=== PATIENT | male | born 1985 | race Hispanic/Latino ===

== ENCOUNTER 2017-05-04 12:38 | Emergency (ER) | payer OTHER ==
[2017-05-04] MEDS ORDERED: VITAMIN B-1 100 MG, FOLVITE 1 MG, INFUVITE 10 ML in NACL 0.9% 1000 ML 1,000 ML IV ONE (13:45)
[2017-05-04] MEDS ORDERED: KEPPRA 1,000 MG/NS 0.75% 100ML 1,000 MG/100 ML BAG IV ONE (13:46)
[2017-05-04 13:52] LABS: Basophils % (Auto) 0.4 % (0.0-1.8); Eosinophils % (Auto) 0.3 % (0.0-4.3); Hemoglobin 15.9 gm/dl (11.8-15.2); Mean Corpuscular HGB Conc 34 % (32-34); Mean Corpuscular Hemoglobin 33 pg (28-32); Mean Corpuscular Volume 96 fl (84-94); Platelet Count 194 K/mm3 (140-440); Red Cell Distribution Width 14.7 % (13.2-15.2); White Blood Count 7.5 K/mm3 (4.5-11.0)
[2017-05-04 13:54] LABS: Urine Drugs of Abuse Note Disclamer
--- NOTE | 2017-05-04 14:00 | Emergency Department Report ---
HPI - General Chief Complaint: Seizure Time Seen by Provider: 05/04/17 13:13 - HPI HPI: This is a 31-year-old male presents to the emergency department by EMS with complaint of a few seizures this morning. The patient was able to become lucid enough to call 911. He does have a seizure history for which she takes Keppra and says that he has been compliant. He also said that he had something to drink last night. However, spoke to the patient's mother who says that they do not have any alcohol house and she is unsure where he would've gotten it. He went to visit one of their family friends today and [place], however they were at s[employer]ism at the time. Usually when he has a seizure problem he ends up at [facility]. His last set of seizures was sometime around October. No recent travel or sick contacts at home. He has a past medical history of diabetes and has some chronic back pain history for which he takes Percocet. He sees a pain physician and is about to set up an appointment with a neurologist. ED Past Medical Hx - Past Medical History Previous Medical History?: Yes Hx Diabetes: Yes Hx Seizures: Yes Additional medical history: Liver Failure - Surgical History Past Surgical History?: Yes Additional Surgical History: Back - Social History Smoking Status: Never Smoker Substance Use Type: Alcohol, Marijuana - Medications Home Medications: Home Medications Medication Instructions Recorded Confirmed Last Taken Type Atenolol [Tenormin] 100 mg PO DAILY 05/04/17 05/04/17 Unknown History Gabapentin [Neurontin] 800 mg PO TID 05/04/17 05/04/17 Unknown History Oxycodone HCl/Acetaminophen 10 mg PO TID 05/04/17 05/04/17 Unknown History [Percocet 10/325 mg] Rosuvastatin (Nf) [Crestor] 20 mg PO DAILY 05/04/17 05/04/17 Unknown History amLODIPine [Norvasc] 5 mg PO DAILY 05/04/17 05/04/17 Unknown History carBAMazepine [Tegretol] 200 mg PO BID #30 tablet 05/04/17 Unknown Rx levETIRAcetam [Keppra] 1,000 mg PO DAILY 05/04/17 05/04/17 Unknown History ED Review of Systems ROS: Stated complaint: UNCONSCIOUS Other details as noted in HPI Comment: All other systems reviewed and negative Constitutional: denies: chills, fever Eyes: denies: eye pain, eye discharge, vision change ENT: denies: ear pain, throat pain Respiratory: denies: cough, shortness of breath, wheezing Cardiovascular: denies: chest pain, palpitations Gastrointestinal: denies: abdominal pain, nausea, diarrhea Genitourinary: denies: urgency, dysuria Musculoskeletal: denies: back pain, joint swelling, arthralgia Skin: denies: rash, lesions Neurological: confusion, other (seizures) Physical Exam - Physical Exam Vital Signs: Vital Signs 05/04/17 05/04/17 12:43 12:52 Temperature 100 F H Pulse Rate 106 H Respiratory 16 16 Rate Blood Pressure 144/97 O2 Sat by Pulse 99 98 Oximetry Physical Exam: GENERAL: The patient is well-developed well-nourished. HENT: Normocephalic. Atraumatic. Patient has moist mucous membranes. EYES: Extraocular motions are intact. Pupils equal reactive to light bilaterally. NECK: Supple. Trachea is midline. CHEST/LUNGS: Clear to auscultation. There is no respiratory distress noted. HEART/CARDIOVASCULAR: Regular. There is mild to moderate tachycardia. There is no gallop rub or murmur. ABDOMEN: Abdomen is soft, nontender. Patient has normal bowel sounds. There is no abdominal distention. SKIN: Skin is warm and dry. NEURO: The patient is awake, alert, and oriented patient does respond slightly slowly. The patient is cooperative. The patient has no focal neurologic deficits. The patient has normal speech and gait. Cranial nerves II through XII grossly intact. MUSCULOSKELETAL: There is no tenderness or deformity. There is no limitation range of motion. There is no evidence of acute injury. ED Course Vital Signs 05/04/17 05/04/17 12:43 12:52 Temperature 100 F H Pulse Rate 106 H Respiratory 16 16 Rate Blood Pressure 144/97 O2 Sat by Pulse 99 98 Oximetry ED Medical Decision Making - Lab Data Result diagrams: 05/04/17 13:34 05/04/17 13:34 - EKG Data -: EKG Interpreted by In EKG shows normal: sinus rhythm, axis, intervals (prolonged QTC), QRS complexes ( Q waves to the septal/anterior leads), ST-T waves Rate: tachycardia (106 bpm) - EKG Data When compared to previous EKG there are: previous EKG unavailable Interpretation: other (sinus tachycardia, Q waves to the septal and anterior leads, prolonged QTc interval) - Medical Decision Making 31-year-old male presents to the emergency department after having a few seizures this morning. He is allegedly compliant with his seizure medication. At first the patient was awake but answered questions slightly slowly, however appropriately. During his ED course he went back to his baseline mental status. No focal, motor or sensory deficits and his cranial nerves are intact. Labs have been unremarkable. The patient continued to have tachycardia throughout most of his ED course. He has a chronic pain issue so I attempted to give him some pain relief of treating his tachycardia. That did not work so the patient was given some IV fluid resuscitation and that did not seem to help. Eventually found out that the patient is on atenolol for blood pressure and rate control and had not taken yet this morning. I presented the patient to the hospitalist for admission but it appears as if he was able to get his heart rate under control, did a CT angiography of the chest and then discharged him home. Critical Care Time: No Critical care attestation.: If time is entered above; I have spent that time in minutes in the direct care of this critically ill patient, excluding procedure time. ED Disposition Clinical Impression: Seizures, Tachycardia Chronic back pain Qualifiers: Back pain location: low back pain Back pain laterality: unspecified Sciatica presence: without sciatica Qualified Code(s): M54.5 - Low back pain; G89.29 - Other chronic pain; G89.29 - Other chronic pain Disposition: DC-01 TO HOME OR SELFCARE Is pt being admited?: No Condition: Stable Instructions: Biliary Colic (ED), Recurrent Seizures Adult (ED) Additional Instructions: no driving until cleared by PCP Prescriptions: carBAMazepine [Tegretol] 200 mg PO BID #30 tablet Referrals: PRIMARY CARE, [Primary Care Provider] - 3-5 Days (your own Neurology Dr in 7days.)
[2017-05-04 14:07] LABS: Alanine Aminotransferase 44 units/L (7-56); Albumin 4.9 g/dL (3.9-5); Albumin/Globulin Ratio 1.5 %; Alkaline Phosphatase 162 units/L (35-129); Anion Gap 22 mmol/L; BUN/Creatinine Ratio 20; Blood Urea Nitrogen 10 mg/dL (9-20); Calcium 9.7 mg/dL (8.4-10.2); Carbon Dioxide 24 mmol/L (22-30); Chloride 104.3 mmol/L (98-107); Glucose 120 mg/dL (75-100); Potassium 3.8 mmol/L (3.6-5.0); Sodium 146 mmol/L (137-145); Total Protein 8.1 g/dL (6.3-8.2)
[2017-05-04 14:12] LABS: Bacteria,Urine 1+ /HPF (Negative); Bilirubin,Urine NEG (Negative); Blood,Urine NEG (Negative); Ketones,Urine NEG (Negative); Leukocyte Esterase,Urine NEG (Negative); Nitrite,Urine NEG (Negative); Protein,Urine <15 mg/dL mg/dL (Negative); RBC,Urine < 1.0 /HPF (0.0-6.0); Urobilinogen,Urine < 2.0 mg/dL (<2.0)
[2017-05-04 14:13] LABS: WBC,Urine < 1.0 /HPF (0.0-6.0)
[2017-05-04] MEDS ORDERED: TORADOL IV ONE (15:45)
[2017-05-04] MEDS ORDERED: DILAUDID IV ONE (16:23)
[2017-05-04] MEDS ORDERED: NACL 0.9% 1000 ML 1,000 ML IV ONE (17:22)
[2017-05-04] MEDS ORDERED: NEURONTIN PO ONE (19:29)
[2017-05-04] MEDS ORDERED: TENORMIN PO ONE (19:30)
[2017-05-04] MEDS ORDERED: PERCOCET 5/325 PO ONE (20:00)
[2017-05-04] MEDS ORDERED: NACL ONE (21:07)
--- NOTE | 2017-05-04 21:46 | Cat Scan Report ---
FINAL REPORT PROCEDURE: CT ANGIO CHEST TECHNIQUE: Computerized tomographic angiography of the chest was performed after the IV injection of iodinated nonionic contrast including image processing. The image data was postprocessed using 2-dimensional multiplanar reformatted (MPR) and 3-dimensional (MIP and/or volume rendered) techniques. HISTORY: Dyspnea COMPARISON: No prior studies are available for comparison. FINDINGS: Heart and pericardium: Normal. Thoracic aorta: Normal. Pulmonary vasculature: Suboptimal enhancement. No filling defect to suggest embolism. Lymph nodes: No enlarged thoracic lymph nodes. Lungs: Normal. Pleural space: No effusion, thickening, or pneumothorax. Musculoskeletal structures: No significant abnormality. Upper abdominal structures: Hepatomegaly. Small gallstones. IMPRESSION: No embolism seen. Suboptimal enhancement of the pulmonary arteries Hepatomegaly. Gallstones.
[2017-05-04 21:47] VITALS: BP 107/67
--- NOTE | 2017-05-05 07:46 | History and Physical Report ---
History of Present Illness Chief complaint: I had a seizure again History of present illness: 31 YO Male with Seizure Disorder, DM, presents to ED for evaluation. Pt states that he experienced a few seizures this morning. The patient was able to become lucid enough to call EMS. Upon arrival, patient had recovered from his seizure and was back to his usual state of health. Pt seen and evaluated in ED and found to have breakthrough seizures, Pt states tht he is compliant with Keppra as outpatient. Pt given loading dose of keppra and initiated therapy with Tegretol. Pt found to be tachycardic and underwent CTA chest which was negative for PE/Aortic Dissection. Pt medically optimized and back to usual state of health. Pt discharged home and instructed to f/u pcp 1wk, and Neurology 1wk. Past History Past Medical History: diabetes, hypertension, seizures Past Surgical History: Other (back surgery) Social history: single, lives with family Family history: no significant family history (reviewed) Medications and Allergies Allergies Allergy/AdvReac Type Severity Reaction Status Date / Time No Known Allergies Allergy Unverified 05/04/17 13:44 Home Medications Medication Instructions Recorded Confirmed Last Taken Type Atenolol [Tenormin] 100 mg PO DAILY 05/04/17 05/04/17 Unknown History Gabapentin [Neurontin] 800 mg PO TID 05/04/17 05/04/17 Unknown History Oxycodone HCl/Acetaminophen 10 mg PO TID 05/04/17 05/04/17 Unknown History [Percocet 10/325 mg] Rosuvastatin (Nf) [Crestor] 20 mg PO DAILY 05/04/17 05/04/17 Unknown History amLODIPine [Norvasc] 5 mg PO DAILY 05/04/17 05/04/17 Unknown History carBAMazepine [Tegretol] 200 mg PO BID #30 tablet 05/04/17 Unknown Rx levETIRAcetam [Keppra] 1,000 mg PO DAILY 05/04/17 05/04/17 Unknown History Review of Systems Constitutional: no weight loss, no weight gain, no fever, no chills, no sweats Ears, nose, mouth and throat: no ear pain, no ear discharge, no tinnitis, no decreased hearing, no nose pain, no nasal congestion, no nasal discharge Cardiovascular: no chest pain, no orthopnea, no palpitations, no rapid/ irregular heart beat, no edema, no syncope, no lightheadedness, no shortness of breath Respiratory: no cough, no cough with sputum, no excessive sputum, no hemoptysis , no shortness of breath Gastrointestinal: no abdominal pain, no nausea, no vomiting, no diarrhea, no constipation Genitourinary Male: no dysuria, no hematuria, no flank pain, no discharge, no urinary frequency, no urinary hesitancy Rectal: no pain, no incontinence, no bleeding Musculoskeletal: no neck stiffness, no neck pain, no shooting arm pain, no arm numbness/tingling, no low back pain, no shooting leg pain, no leg numbness/ tingling Integumentary: no rash, no pruritis, no redness, no sores, no wounds, no jaundice, no boils Neurological: seizures, no head injury, no transient paralysis, no paralysis, no weakness, no parathesias, no numbness, no tingling, no syncope, no tremors, no ataxia Psychiatric: no anxiety, no memory loss, no change in sleep habits, no sleep disturbances, no insomnia, no hypersomnia, no change in appetite, no change in libido Endocrine: no cold intolerance, no heat intolerance, no polyphagia, no excessive thirst, no polydipsia, no polyuria, no nocturia Hematologic/Lymphatic: no easy bruising, no easy bleeding Allergic/Immunologic: no urticaria, no allergic rhinitis, no wheezing Exam - Constitutional Vitals: Temp Pulse Resp BP Pulse Ox 98.3 F 82 16 107/67 96 05/04/17 19:45 05/04/17 21:45 05/04/17 21:45 05/04/17 21:45 05/04/17 21:45 General appearance: Present: no acute distress, well-nourished - EENT Eyes: Present: PERRL ENT: hearing intact, clear oral mucosa - Neck Neck: Present: supple, normal ROM - Respiratory Respiratory effort: normal Respiratory: bilateral: CTA - Cardiovascular Heart Sounds: Present: S1 & S2. Absent: rub, click - Extremities Extremities: pulses symmetrical, No edema Peripheral Pulses: within normal limits - Abdominal General gastrointestinal: Present: soft, non-tender, non-distended, normal bowel sounds Male genitourinary: Present: normal - Integumentary Integumentary: Present: clear, warm, dry - Musculoskeletal Musculoskeletal: gait normal, strength equal bilaterally - Psychiatric Psychiatric: appropriate mood/affect, intact judgment & insight - Neurologic Neurologic: CNII-XII intact, moves all extremities Results - Labs CBC & Chem 7: 05/04/17 13:34 05/04/17 13:34 Labs: Abnormal lab results 05/04/17 05/04/17 05/04/17 Range/Units 13:34 13:34 13:34 Hgb 15.9 H (11.8-15.2) gm/dl Hct 47.0 H (35.5-45.6) % MCV 96 H (84-94) fl MCH 33 H (28-32) pg Lymph % (Auto) 45.0 H (13.4-35.0) % Sodium 146 H (137-145) mmol/L Creatinine 0.5 L (0.8-1.5) mg/dL Glucose 120 H (75-100) mg/dL AST 64 H (5-40) units/L Alkaline Phosphatase 162 H (35-129) units/L Total Creatine Kinase 43 L (55-170) units/L Assessment and Plan - Patient Problems (1) Seizures Status: Acute Plan to address problem: No recurrent seizures, Pt treated with Keppra, Tegretol. Pt counseled regarding ETOH cessation. Pt instructed to f/u PCP and Neurology within 1 wk. (2) Diabetes Status: Acute Qualifiers: Diabetes mellitus type: D Diabetes mellitus complication status: D Diabetes mellitus complication detail: D Diabetic retinopathy severity: D Proliferative retinopathy type: P Diabetes mellitus macular edema: D Diabetes mellitus termite inspector insulin use: D Laterality: L Chronic kidney disease stage: C Plan to address problem: ADA diet, insulin, accu check
== END 2017-05-04 22:44 | disposition home or self-care (01) ==
LOC: EDBD → ED 12:38
DX: R56.9 Unspecified convulsions (principal); R00.0 Tachycardia, unspecified; M54.89 Other dorsalgia; G89.29 Other chronic pain; E11.9 Type 2 diabetes mellitus without complications; F12.10 Cannabis abuse, uncomplicated
CPT/HCPCS: 36415; 71275; 80053; 80307; 81001; 82550; 85025; 96361; 96365; 96367; 96375; 99285; G0480; J1170; J1885; J1953; J3411; J7030; Q9967; 80320